=== PATIENT | female | born 1970 | race Caucasian/White ===

== ENCOUNTER 2018-06-06 20:53 | Emergency (ER) | payer OTHER ==
[2018-06-06] MEDS: IBUPROFEN 600 MG TAB PO (21:33)
== END 2018-06-06 21:39 ==
LOC: E/R 20:53
DX: S00.03XA Contusion of scalp, initial encounter (principal); Y04.0XXA Assault by unarmed brawl or fight, initial encounter; Z00.8 Encounter for other general examination
CPT/HCPCS: 99282